=== PATIENT | male | born 1965 ===

== ENCOUNTER 2025-02-18 06:00 | Day surgery (SDC) | payer OTHER ==
[2025-02-12 13:07] VITALS: BP 122/75
[~2025-02-18] VITALS: Ht 180.3 cm; Wt 95.3 kg
[~2025-02-18 06:00] MED LIST: NORVASC5 MG; OMEPRAZOLE-BIC1 EAC1; RAMIPRIL10 MG
[2025-02-18] MEDS ORDERED: CEFAZOLIN SODIUM 1,000 MG VIAL ONE (07:04)
[2025-02-18] MEDS ORDERED: ENOXAPARIN SODIUM 40 MG/0.4 ML SYRINGE SUBCUTANEO ONE (07:09)
[2025-02-18] MEDS ORDERED: SUGAMMADEX SODIUM 200 MG/2 ML VIAL IV ONE (07:33)
[2025-02-18] MEDS ORDERED: BUPIVACAINE HCL/MPF 0.5% 30ML VIAL ONE (07:33)
[2025-02-18] MEDS ORDERED: TRAMADOL HCL50 MG PO (09:18)
[2025-02-18] MEDS ORDERED: CITRATE OF MAG296 ML PO (09:19)
[2025-02-18] MEDS ORDERED: SURFAK240 M1 PO (09:20)
[2025-02-18] MEDS ORDERED: CIPRO500 MG PO (09:20)
[2025-02-18] MEDS ORDERED: TYLENOL325 MG PO (09:21)
[2025-02-18] MEDS ORDERED: MORPHINE SULFATE 4 MG/ML VIAL IV ONE ×2 (10:00→11:00)
== END 2025-02-18 12:05 | disposition home or self-care (01) ==
LOC: CIR.AMB 06:00
PROVIDERS: ATTEND Surgery
DX: K40.90 Unilateral inguinal hernia, without obstruction or gangrene, not specified as recurrent (principal); K42.0 Umbilical hernia with obstruction, without gangrene